=== PATIENT | male | born 1985 | race African-American/Black ===

== ENCOUNTER 2017-11-21 17:32 | Emergency (ER) | payer SELFPAY ==
[~2017-11-21] VITALS: Ht 180.3 cm; Wt 83.4 kg
[2017-11-21 17:51] VITALS: BP 140/104
[2017-11-21] MEDS ORDERED: KEFLEX500 MG PO (18:52)
== END 2017-11-21 19:05 | disposition home or self-care (01) ==
LOC: EME 17:32
PROC: 3E0234Z Introduction of Serum, Toxoid and Vaccine into Muscle, Percutaneous Approach (ICD-10-PCS; principal; 2017-11-21)
DX: S61.412A Laceration without foreign body of left hand, initial encounter (principal); W26.0XXA Contact with knife, initial encounter; Z87.891 Personal history of nicotine dependence
CPT/HCPCS: 99281; 99283